=== PATIENT | female | born 1960 | race Hispanic/Latino ===

== ENCOUNTER 2021-01-08 18:36 | Emergency (ER) | payer BC ==
[~2021-01-08] VITALS: Ht 157.5 cm; Wt 88.5 kg
[~2021-01-08 18:36] MED LIST: SERTRALINE HCL50 MG PO
[2021-01-08] MEDS ORDERED: CASIRIVIMAB/IMDEVIMAB 10 ML VIAL IV ONE (18:45)
[2021-01-08] MEDS ORDERED: CASIRIVIMAB/IMDEVIMAB 600 ML in SODIUM CHLORIDE 0.9% 100 ML IV ONE (19:00)
== END 2021-01-08 21:03 | disposition home or self-care (01) ==
LOC: ER 18:44
DX: R50.9 Fever, unspecified (principal); U07.1 COVID-19
CPT/HCPCS: 99283; J7050